=== PATIENT | female | born 1980 | race Caucasian/White ===

== ENCOUNTER → 2016-06-21 | Outpatient (CLI) | payer MEDICARE, OTHER ==
--- NOTE | ~2016-06-21 | EKG ---
PATIENT: MAGNO CARUSO UNIT #: [id number] Ventricular Rate: 91 BPM Atrial Rate: 91 BPM P-R Interval: 124 ms QRS Duration: 80 ms Q-T Interval: 374 ms QTC Calculation(Bezet): 460 ms P [place]: 12 degrees Calculated R [place]: 26 degrees Calculated T [place]: 61 degrees Diagnosis Line: Normal sinus rhythm with sinus arrhythmia Diagnosis Line: Prolonged QT Diagnosis Line: Abnormal ECG Diagnosis Line: When compared with ECG of 29-JUN-2015 10:25, Diagnosis Line: Vent. rate has decreased BY 62 BPM Diagnosis Line: T wave inversion no longer evident in Inferior Diagnosis Line: leads Diagnosis Line: Confirmed by HARSHAD VAZQUEZ MD ([id number]) on 06/21/2016 Diagnosis Line: 10:24:15 PM INTERPRETING MD: GEORGE WORRELL
[2016-06-21 10:54] LABS: HEMATOCRIT 44.6 % (35.0-45.0); HEMOGLOBIN 14.6 gm/dL (12.0-16.0); MEAN CELL VOLUME 88.5 FL (83-96); MEAN CORPUSCULAR HGB CONC 32.8 g/dL (30-36); MEAN PLATELET VOLUME 8.3 FL (6.5-11.5); RED BLOOD COUNT 5.04 X10e (3.90-5.30); RED CELL DISTRIBUTION WIDTH 14.2 % (11.0-15.5); WHITE BLOOD COUNT 14.1 X10e3 (4.0-10.5)
[2016-06-21 11:13] LABS: INR 0.9; PARTIAL THROMBOPLASTIN TIME 28.1 SECONDS (23.5-31.3); PROTHROMBIN TIME (PATIENT) 9.6 SECONDS (9.6-11.5)
[2016-06-21 11:50] LABS: ALBUMIN SERUM 3.3 g/dL (3.5-5.0); BILIRUBIN, DIRECT 0.1 mg/dL (0.0-0.2); BILIRUBIN,INDIRECT 0.5 mg/dL (0.0-0.9); BILIRUBIN,TOTAL 0.6 mg/dL (0.2-2.0); PROTEIN TOTAL SERUM 7.3 g/dL (6.0-8.3)
== END | disposition home or self-care (01) ==
LOC: CRAD 09:53
PROVIDERS: Dentist General Practice
DX: Z01.818 Encounter for other preprocedural examination (principal)
CPT/HCPCS: 36415; 80076; 84703; 85027; 85610; 85730; 93005